=== PATIENT | male | born 1980 | race Hispanic/Latino ===

== ENCOUNTER 2019-12-02 10:47 | Emergency (ER) | payer OTHER ==
[~2019-12-02] VITALS: Ht 167.6 cm; Wt 81.6 kg
[2019-12-02] MEDS ORDERED: KETOROLAC TROMETHAMINE 30 MG/ML VIAL ONE (11:10)
[2019-12-02] MEDS ORDERED: NAPROSYN500 MG PO (11:12)
[2019-12-02] MEDS ORDERED: PREDNISONE20 MG PO (11:12)
[2019-12-02] MEDS ORDERED: TYLENOL WITH C1 EACH PO (11:12)
[2019-12-02] MEDS ORDERED: KETOROLAC TROMETHAMINE 60 MG/2 ML VIAL IM ONE (11:15)
--- NOTE | 2019-12-02 11:40 | Diagnostic Imaging Report ---
EXAM: Abdomen Radiograph 1 View(s) INDICATION: ^PAIN ^[id number] ^[id number] COMPARISON: None FINDINGS: 6 nonrib-bearing lumbar-type vertebral bodies. Normal lumbar lordosis. No listhesis. No vertebral body height loss. No scoliosis. The intervertebral disc spaces are maintained. No facet arthrosis. Soft tissues are unremarkable. IMPRESSION: No acute abdominal radiographic abnormality. Signed by: Lázaro Jauregui MD on 12/02/2019 11:37 AM
--- NOTE | 2019-12-02 11:55 | Emergency Department Note ---
History of Present Illnes History of Present Illness Chief Complaint: Back Pain History of Present Illness This is a 38 year old male . Historian: Patient, Family Member Arrival Mode: Car Tile Professional Required: No Onset (how long ago): day(s) (2 DAYS) Radiation: Reports distal (PAIN GOES DOWN THE RIGHT LEG POSTERIORLY ) Onset quality: gradual Duration (how long): day(s) (2) Timing of current episode: constant Progression: unchanged Chronicity: recurrent (PT HAS HAD PROBLEMS WIHT HIS BACK BEFORE) Relieving factors: none, immobilization Exacerbating factors: none, movement Associated symptoms: Reports denies other symptoms Treatments prior to arrival: NSAID Past Medical/Family History Physician Review I have reviewed the patient's past medical and family history. Any updates have been documented here. Past Medical History Recent Fever: No Clinical Suspicion of Infectio: No New/Unexplained Change in Ment: No Past Medical History: None, Chronic Back Pain Past Surgical History: None Social History Smoking Cessation: Never Smoker Counseling Performed: No Alcohol Use: Occasional Any Illegal Drug Use: No TB Exposure/Symptoms: No Physically hurt or threatened: No Other Last Tetanus: UNKNOWN Any Pre-Existing Lines (PICC,: No Is patient up to date on immun: Yes Last Flu: 2019 Last Pneumovax: UNK Review of Systems Review of Systems Constitutional: Denies no symptoms, Denies as per HPI, Denies chills, Denies diaphoresis, Denies fever, Denies malaise, Denies weakness, Denies other EENTM: Denies no symptoms, Denies as per HPI, Denies eye pain, Denies blurred vision, Denies tearing, Denies double vision, Denies ear pain, Denies ear discharge, Denies nose pain, Denies nose congestion, Denies throat pain, Denies throat swelling, Denies mouth pain, Denies mouth swelling, Denies other Cardiovascular: Denies no symptoms, Denies as per HPI, Denies chest pain, Denies edema, Denies palpitations, Denies syncope, Denies other Respiratory: Denies no symptoms, Denies as per HPI, Denies change in phlegm color, Denies chest congestion, Denies cough, Denies hemoptysis, Denies excessive phlegm production, Denies pain on inspiration, Denies pain with cough, Denies dyspnea, Denies dyspnea on exertion, Denies snoring, Denies stridor, Denies wheezing, Denies other Gastrointestinal: Denies no symptoms, Denies as per HPI, Denies abdominal pain, Denies constipation, Denies diarrhea, Denies nausea, Denies vomiting, Denies other Genitourinary: Denies no symptoms, Denies as per HPI, Denies discharge, Denies dysuria, Denies frequency, Denies hematuria, Denies pain, Denies other Musculoskeletal: Reports back pain Integumentary: Denies no symptoms, Denies as per HPI, Denies change in color, Denies change in hair/nails, Denies dryness, Denies lesions, Denies lumps, Denies rash, Denies poor turgor, Denies ecchymosis, Denies other Neurological: Reports paresthesia (NO WEAKNESS, NUMBNESS URINARY OR BOWEL INCONTINENCE) Endocrine: Denies no symptoms, Denies as per HPI, Denies excessive sweating, Denies flushing, Denies intolerance to cold, Denies intolerance to heat, Denies increased hunger, Denies increased thirst, Denies increased urination, Denies unexplained weight gain, Denies unexplained weight loss, Denies other Hematological/Lymphatic: Denies no symptoms, Denies as per HPI, Denies anemia, Denies blood clots, Denies easy bleeding, Denies easy bruising, Denies swollen glands, Denies other Physical Exam Related Data Allergies: Coded Allergies: No Known Allergies (Unverified , 12/02/19) Triage Vital Signs Vital Signs Date Time Temp Pulse Resp B/P (MAP) Pulse Ox O2 Delivery O2 Flow Rate FiO2 12/02/19 10:57 97.4 90 18 150/82 99 Vital signs reviewed: Yes Physical Exam CONSTITUTIONAL Constitutional: Present well-developed HENT HENT: Present normocephalic EYES Eyes: Reports conjunctivae normal NECK Neck: Present supple PULMONARY Pulmonary: Present breath sounds normal CARDIOVASCULAR Cardiovascular: Present regular rhythm GASTROINTESTINAL Abdominal: Present soft GENITOURINARY Genitourinary: Present exam deferred SKIN Skin: Present warm MUSCULOSKELETAL Musculoskeletal: Present ROM normal NEUROLOGICAL Neurological: Present alert, Present oriented x 3, Present DTRs normal, Present no gross motor or sensory deficits PSYCHOLOGICAL Psychological: Present mood/affect normal Results Imaging Imaging results reviewed: Yes Impressions L SPINE NEGATIVE Assessment & Plan Medical Decision Making MDM DISC DISEASE, DISC HERNIATION, BACK PAIN, ABSCESS, MASS Reassessment Reassessment PT FEELS BETTER AFTER TORADOL INJECTION WE DISCUSSED THE NEED FOR A PCP AND INTERVENTIONAL PAIN MANAGEMENT PHYSICIAN FOR FOLLOW UP AND POSSIBLE INJECTIONS AND FURTHER TREATMENT Assessment & Plan Final Impression: (1) Degenerative disc disease (2) Radiculopathy, lumbar region (3) Back pain Depart Disposition: HOME, SELF-CARE Last Vital Signs Date Time Temp Pulse Resp B/P (MAP) Pulse Ox O2 Delivery O2 Flow Rate FiO2 12/02/19 10:57 97.4 90 18 150/82 99 Home Meds Active Scripts Prednisone (PREDNISONE) 20 Mg Tab, 20 MG PO TID for 5 Days, #15 Prov:DORETHA RDZ MD 12/02/19 Acetaminophen With Codeine (TYLENOL WITH CODEINE #3 TABLET) 1 Each Tablet, 300 MG PO QID for 4 Days, #16 TAB Prov:DORETHA RDZ MD 12/02/19 Naproxen (NAPROSYN) 500 Mg Tablet, 500 MG PO BID for 7 Days, #15 TAB Prov:DORETHA RDZ MD 12/02/19 Medications in the ED Ketorolac Tromethamine 30 mg ONCE ONCE IM Last administered on 12/02/19at 11:05; Admin Dose 30 MG; Start 12/02/19 at 11:15; Stop 12/02/19 at 11:16; Status DC Ketorolac Tromethamine 30 mg STK-MED ONCE .ROUTE ; Start 12/02/19 at 11:10; Stop 12/02/19 at 11:07; Status DC DORETHA RDZ MD Dec 02, 2019 11:55
== END 2019-12-02 12:00 | disposition home or self-care (01) ==
LOC: FSED 10:47
DX: M54.16 Radiculopathy, lumbar region (principal); M51.36 Other intervertebral disc degeneration, lumbar region
CPT/HCPCS: 72100; 99283; J1885 ×2

== ENCOUNTER 2021-03-09 10:36 | Emergency (ER) | payer OTHER ==
[~2021-03-09] VITALS: Ht 167.6 cm; Wt 80.7 kg
[~2021-03-09 10:36] MED LIST: NAPROSYN500 MG PO; PREDNISONE20 MG PO; TYLENOL WITH C1 EACH PO
[2021-03-09] MEDS ORDERED: KETOROLAC TROMETHAMINE 60 MG/2 ML VIAL IM ONE (11:45)
[2021-03-09] MEDS ORDERED: PREDNISONE 20 MG TAB PO ONE (11:45)
[2021-03-09] MEDS ORDERED: PREDNISONE20 MG PO (12:44)
[2021-03-09] MEDS ORDERED: ACETAMINOPHEN-1 EAC4 PO (12:44)
[2021-03-09] MEDS ORDERED: PREDNISONE 20 MG TAB ONE (12:47)
[2021-03-09] MEDS ORDERED: KETOROLAC TROMETHAMINE 60 MG/2 ML VIAL ONE (12:47)
== END 2021-03-09 13:11 | disposition home or self-care (01) ==
LOC: FSED 10:48
DX: M54.42 Lumbago with sciatica, left side (principal); G89.29 Other chronic pain
CPT/HCPCS: 72100; 99283; J1885; J7512